=== PATIENT | male | born 1970 | race Caucasian/White ===

== ENCOUNTER 2020-01-07 17:38 | Emergency (ER) | payer BC ==
[~2020-01-07] VITALS: Ht 175.3 cm; Wt 89.9 kg
[~2020-01-07 17:38] MED LIST: ASPI325T17 PO; FLUO40CA2 PO; LISI-170 PO; METO25TA91 PO; THIA100T67 PO
[2020-01-07] MEDS ORDERED: METOPROLOL 1 MG/ML, 5ML ONE ×3 (18:13→18:48)
[2020-01-07] MEDS: METOPROLOL 1 MG/ML, 5ML IVPush PRN ×3 (18:16→18:50)
[2020-01-07] MEDS ORDERED: ASPI-496 PO (18:17)
[2020-01-07] MEDS ORDERED: OMEP40CA42 PO (18:18)
[2020-01-07] MEDS ORDERED: LISI-167 PO (18:19)
[2020-01-07 18:23] LABS: BASOPHILS # (AUTO) 0.11 x10^3/uL (0-0.1); BASOPHILS % (AUTO) 1 % (0-1); EOSINOPHILS # (AUTO) 0.27 x10^3/uL (0-0.4); EOSINOPHILS % (AUTO) 3 % (1-7); LYMPHOCYTES # (AUTO) 3.12 x10^3/uL (1-3.4); LYMPHOCYTES % (AUTO) 34 % (22-44); MD NO; MEAN CORPUSCULAR HEMOGLOBIN 31.5 pg (27.5-34.5); MEAN CORPUSCULAR HGB CONC 33.9 g/dL (33.2-36.2); MEAN PLATELET VOLUME 7.8 fL (7.4-10.4); MONOCYTES # (AUTO) 0.84 x10^3/uL (0.2-0.8); MONOCYTES % (AUTO) 9 % (2-9); NEUTROPHILS % (AUTO) 53 % (42-75); PLATELET COUNT 273 x10^3/uL (130-400); RED BLOOD COUNT 5.11 x10^6/uL (4.38-5.82); RED CELL DISTRIBUTION WIDTH 13.9 % (9.4-14.8)
[2020-01-07] MEDS ORDERED: SODIUM CHLORIDE FLUSH 10ML SYR IVF ONE (18:30)
[2020-01-07 18:31] LABS: ALANINE AMINOTRANSFERASE 44 U/L (12-78); ALBUMIN 4.1 g/dL (3.4-5.0); ANION GAP 11 mmol/L (5-15); CHLORIDE 107 mmol/L (98-107); CREATININE 0.98 mg/dL (0.7-1.3)
[2020-01-07 18:36] LABS: ALKALINE PHOSPHATASE 109 U/L (45-117); BILIRUBIN,TOTAL 0.5 mg/dL (0.2-1.0); TOTAL PROTEIN 8.1 g/dL (6.4-8.2); TROPONIN I < 0.015 ng/mL (0.000-0.045)
--- NOTE | 2020-01-07 18:53 | NUR ---
METOPROLOL 5MG IVP GIVEN X 3. HEART RATE COMING DOWN FROM 160S-170S TO 110-120S NOW.
[2020-01-07] MEDS ORDERED: METOPROLOL TARTRATE 25 MG TAB PO ONE (19:00)
[2020-01-07] MEDS ORDERED: METOPROLOL TARTRATE 25 MG TAB ONE (19:06)
--- NOTE | 2020-01-07 19:14 | NUR ---
REPORT FROM [facility]IC[facility] PT WITH LOPRESSOR PO PER MD ORDER, PT IN NAD AT THIS TIME
[2020-01-07 20:07] VITALS: BP 112/77
--- NOTE | 2020-01-07 20:10 | NUR ---
PT HR WNL TO D/C
== END 2020-01-07 20:26 ==
LOC: ED 19:55
DX: I48.0 Paroxysmal atrial fibrillation (principal); F10.20 Alcohol dependence, uncomplicated; R00.2 Palpitations; I51.7 Cardiomegaly; I10 Essential (primary) hypertension; Y90.0 Blood alcohol level of less than 20 mg/100 ml
CPT/HCPCS: 36415; 80053; 80307; 83735; 84484; 85025; 93005; 96374; 96376; 99285